=== PATIENT | male | born 1990 | race Caucasian/White ===

== ENCOUNTER 2017-11-11 16:09 | Emergency (ER) | payer MEDICAID ==
[~2017-11-11] VITALS: Ht 188 cm; Wt 81.0 kg
[2017-11-11 16:13] VITALS: BP 131/83
== END 2017-11-11 17:09 | disposition home or self-care (01) ==
LOC: ED 17:00
DX: J02.9 Acute pharyngitis, unspecified (principal); J00 Acute nasopharyngitis [common cold]; Z88.0 Allergy status to penicillin
CPT/HCPCS: 71020; 99284

== ENCOUNTER 2018-01-19 17:01 | Emergency (ER) | payer MEDICAID ==
[~2018-01-19] VITALS: Ht 188 cm; Wt 82.0 kg
[2018-01-19] MEDS ORDERED: KETOROLAC 30 MG/1 ML IM ONE (19:00)
[2018-01-19] MEDS ORDERED: KETOROLAC 30 MG/1 ML ONE (19:15)
[2018-01-19 19:36] VITALS: BP 143/81
== END 2018-01-19 19:37 | disposition home or self-care (01) ==
LOC: ED 19:31
DX: S90.811A Abrasion, right foot, initial encounter (principal); G89.11 Acute pain due to trauma; M20.11 Hallux valgus (acquired), right foot; X58.XXXA Exposure to other specified factors, initial encounter; Y93.89 Activity, other specified; Y99.8 Other external cause status; Y92.009 Unspecified place in unspecified non-institutional (private) residence as the place of occurrence of the external cause
CPT/HCPCS: 73630; 96372; 99284; J1885

== ENCOUNTER 2018-11-07 06:18 | Emergency (ER) | payer SELFPAY ==
[~2018-11-07] VITALS: Ht 188 cm; Wt 80.6 kg
[2018-11-07 06:36] VITALS: BP 127/96
== END 2018-11-07 08:41 | disposition home or self-care (01) ==
LOC: ED 08:30
DX: J00 Acute nasopharyngitis [common cold] (principal)
CPT/HCPCS: 71046; 99283